=== PATIENT | female | born 1930 | race Caucasian/White ===

== ENCOUNTER 2017-10-27 11:49 | Inpatient (IN) | payer OTHER ==
[~2017-10-27] VITALS: Ht 149.9 cm; Wt 45.4 kg
[~2017-10-27 11:49] MED LIST: LISI-424 PO
--- NOTE | 2017-10-27 11:50 | NUR ---
Pt taken to bed 1 by EMS.
[2017-10-27 11:55] VITALS: BP 128/48
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
[2017-10-27] MEDS ORDERED: NACL 0.9% 500 ML IV ONE ×2 (12:05)
[2017-10-27 12:51] LABS: ANION GAP 7.8 (8-16); BASOPHILS # (AUTO) 0.1 K/uL (0.00-0.22); BASOPHILS % (AUTO) 2.9 % (0.0-2.0); CARBON DIOXIDE 26.6 mmol/L (21-32); CHLORIDE 106 mmol/L (98-107); CREATININE 0.9 mg/dL (0.6-1.3); EOSINOPHILS # (AUTO) 0.7 K/uL (0-0.4); EOSINOPHILS % (AUTO) 15.7 % (0.0-4.0); GLUCOSE 109 mg/dL (74-106); HEMATOCRIT 35.3 % (36-48); HEMOGLOBIN 11.7 g/dL (12.0-16.0); LYMPHOCYTES # (AUTO) 0.8 K/uL (2.5-16.5); LYMPHOCYTES % (AUTO) 18.4 % (20.5-51.1); MEAN CORPUSCULAR HEMOGLOBIN 32 pg (27-31); MEAN CORPUSCULAR HGB CONC 33 g/dL (33-37); MEAN CORPUSCULAR VOLUME 96 fL (80-94); MONOCYTES # (AUTO) 0.5 K/uL (0.8-1.0); MONOCYTES % (AUTO) 11.5 % (1.7-9.3); NEUTROPHILS # (AUTO) 2.4 K/uL (1.8-7.7); NEUTROPHILS % (AUTO) 51.5 % (42.2-75.2); PLATELET COUNT (AUTO) 205 K/uL (140-450); POTASSIUM 4.4 mmol/L (3.5-5.1); RED BLOOD CELL COUNT(AUTO) 3.66 MIL/uL (4.20-5.40); SODIUM SERUM 136 mmol/L (136-145); UREA NITROGEN, BLOOD 23 mg/dL (7-18); WHITE BLOOD COUNT (AUTO) 4.5 K/uL (4.8-10.8)
[2017-10-27 12:54] LABS: PROTHROMBIN TIME 10.3 secs (10.8-13.4)
[2017-10-27 12:57] LABS: ALBUMIN 2.9 g/dL (3.4-5.0); ASPARTATE AMINOTRANSFERASE 22 U/L (15-37); TOTAL BILIRUBIN 0.2 mg/dL (0.0-1.0)
[2017-10-27] MEDS: NACL 0.9% 1,000 ML IV SCH (13:54)
[2017-10-27] MEDS ORDERED: HYDROcodone/APAP 7.5/325 MG 1 TAB PO PRN (13:55)
[2017-10-27] MEDS ORDERED: DOCUSATE SODIUM 100 MG GELCAP PO PRN (13:55)
[2017-10-27] MEDS ORDERED: ACETAMINOPHEN 325 MG TAB PO PRN (13:55)
[2017-10-27] MEDS ORDERED: ONDANSETRON 4 MG/2 ML VIAL IM/IVP PRN (13:55)
--- NOTE | 2017-10-27 14:00 | NUR ---
Carley called to ask about how to store patient's belongings. Carley provided info about bed bugs and states it's not an infectious process and there is no special procedure for pt belongings.
--- NOTE | 2017-10-27 14:08 | NUR ---
Dr. Scott at bedside.
--- NOTE | 2017-10-27 14:16 | NUR ---
Srinivasan from [facility] came down to take patient's belongings. Belongings placed in a trash bag with a goose neck knot. Srinivasan from [facility] would take the belongings and hold them while pt is admitted.
[2017-10-27 14:27] LABS: APPEARANCE,URINE CLEAR (CLEAR); BILIRUBIN,URINE NEGATIVE (NEGATIVE); BLOOD, URINE NEGATIVE (NEGATIVE); COLOR,URINE YELLOW (YELLOW); LEUKOCYTE ESTERASE ,URINE NEGATIVE (NEGATIVE); NITRITE, URINE NEGATIVE (NEGATIVE); PH,URINE 6.5 (5.0-9.0); UGLUCOSE NEGATIVE (NEGATIVE)
--- NOTE | 2017-10-27 14:32 | NUR ---
Pt transferred to Tele 116 via gurweston/amr physician accompanied by Annabel ALVAREZ. Report given to Annabel ALVAREZ.
--- NOTE | 2017-10-27 14:35 | NUR ---
PATIENT ARRIVED ON FLOOR VIA GURNEY. PATIENT AAO X2, SPEAKS SOME MALTESE AND CYPRIOT, CONFUSED. ALERT AND AWAKE. IV 20 G ON LEFT AC. ON ROOM AIR. NO SIGNS OF DISTRESS OR SOB NOTED. RESPIRATIONS EVEN AND UNLABORED. SKIN INTACT. CNAS WILL ASSIST HER IN SHOWERING. SAFETY PRECAUTIONS IN PLACE, BED ON LOWEST SETTING, CALL LIGHT WITHIN REACH. WILL CONTINUE TO MONITOR PATIENT AND FOLLOW ORDERS PER MD. Addendum: 10/27/17 at 1932 by Eduar Sharp RN MRSA SCREENING DONE.
[2017-10-27 15:30] LABS: CHOL/HDL RATIO 2.2 (1-4.5); FREE T4 (FREE THYROXINE) 0.94 ng/dL (0.76-1.46); MAGNESIUM 2.3 mg/dL (1.8-2.4); PHOSPHORUS 3.6 mg/dL (2.5-4.9); THYROID STIMULATING HORMONE 1.99 uIU/mL (0.34-3.74)
--- NOTE | 2017-10-27 16:00 | NUR ---
VS WITHIN NORMAL LIMITS. PATIENT LYING IN BED. NO SIGNS OF DISTRESS NOTED. SAFETY PRECAUTIONS ON. WILL CONTINUE TO MONITOR PATIENT.
[2017-10-27 16:20] VITALS: BP 172/71
--- NOTE | 2017-10-27 18:15 | NUR ---
PATIENT SITTING UP IN BED EATING DINNER. NO DISTRESS OR SOB NOTED. PATIENT DENIES PAIN. SAFETY PRECAUTIONS IN PLACE. WILL CONTINUE TO MONITOR PATIENT.
--- NOTE | 2017-10-27 19:25 | NUR ---
REPORT GIVEN TO DOCTOR OF NATUROPATHIC MEDICINE RN AT BEDSIDE FOR CONTINUITY OF CARE. PATIENT IN STABLE CONDITION.
--- NOTE | 2017-10-27 19:30 | NUR ---
RECEIVED PT FROM CHEL ALVAREZ PT AAOX1 ON BED REST ON TELE SB, IV ON LEFT AC INFUSIG WELL PT ON CONTACT ISOLATION FOR HX BED/BUGS ON HER BODY AND SCRATCHES AND REDNESS FOR ALL HER BODY PT IS ORIENTED TO THE FLOOR CALL LIGHT WITHIN REACH.
[2017-10-27 20:00] VITALS: BP 101/45
--- NOTE | 2017-10-27 21:30 | NUR ---
FAMILY HAS BEEN CALLING SEVERAL TIMES TO SIGN CONSET FOR CT CHEST WITH CONTRAS AND TEL SOUND BUSY DR STEWART AWARE.
--- NOTE | 2017-10-27 21:30 | NUR ---
PT HAS A SITTER AND DR LEIGH WAS NOTIFY PT UNABLE TO SIGN CONSENT FOR CT CHEST WITH CONTRAST AND PT FAMILY WAS CALLED AND NOBODY ANSWER, THEN TOMCATIE PAUL WILL BE CONTACT TO GET MORE INFORMATION TO GET CT CHEST WITH CONTRAST.
[2017-10-28] VITALS (7 sets, daily range): BP systolic 128–152; BP diastolic 52–72
--- NOTE | 2017-10-28 | NUR ---
PT RESTING ON BED NOT DISTRESS NOTED IV ONLEFT AC INFUSING WELL SB ON TELEMETRY SITTER AT BED SIDE
--- NOTE | 2017-10-28 04:00 | NUR ---
PT IS ASSISTED TO THE RESTROOM VOIDING WELL PT CONFUSED AAOX1 PT CAN NOT SIGN CONSENT FOR CT CHEST WITH CONTRAST FAMILY HAS BEEN CALLING AND NOBODY ANSWER DR RESIDENT STEWART AWARE.
--- NOTE | 2017-10-28 05:00 | NUR ---
SPONGE BATH GIVEN LINEN CHANGED PT CONFUSED AAOX1 NOT COMBATIVE FOLLOW COMMANDS ON TELE SB
[2017-10-28 06:16] LABS: T4 (THYROXINE) 6.4 ug/dL (4.5-12.0)
[2017-10-28] MEDS: NACL 0.9% 1,000 ML IV SCH ×2 (06:34→23:40)
--- NOTE | 2017-10-28 07:00 | NUR ---
PT FAMILY HAS BEEN CALLING SEVERAL TIMES , DR DR JENNIFER MARTIN SIGN CONSENT FOR CT CHEST WITH CONTRAST AND TELL DOES NOT ANSWER
--- NOTE | 2017-10-28 07:05 | NUR ---
FAMILY HAS BEEN CALLING SEVERAL TIMES AND NOBODY ANSWER .WE NEED ANY RELATIVE TO SING CONSENT FOR CT CHEST WITH CONTRAST AND NOT BODY ANSWER THE PHONE DR RODRIGUEZ IS AWARE.
--- NOTE | 2017-10-28 07:30 | NUR ---
PT IS ENDORSED TO EUGENIO ALVAREZ FOR CONTINUITY OF CARE
--- NOTE | 2017-10-28 08:00 | NUR ---
RECEIVED REPORT FROM KIM ALMENDAREZ. PATIENT ALERT AWAKE X1. NOT IN ANY DISTRESS NOTED. WITH IVF ON GOING AND INFUSING WELL. INITIAL ASSESSMENT INITIATED. CONTACT PRECAUTION OBSERVED. NEEDS ATTENDED, CALL LIGHT WITHIN REACH. WILL CONTINUE TO MONITOR.
[2017-10-28] MEDS ORDERED: HYDROCORTISONE 1% CRM 30 GM TUBE TP SCH (09:00)
--- NOTE | 2017-10-28 09:16 | NUR ---
PATIENT HAS BEEN SCREENED AND CATEGORIZED HIGH NUTRITION RISK. PATIENT WILL BE SEEN WITHIN 1-2 DAYS OF ADMISSION. 10/27/17-10/28/[address]
--- NOTE | 2017-10-28 11:00 | NUR ---
PATIENT MOVED TO ROOM 121 A FOR CLOSE MONITORING, PATIENT IS FALL RISK. WILL CONTINUE TO MONITOR.
--- NOTE | 2017-10-28 15:37 | NUR ---
RD INITIAL ASSESSMENT COMPLETED PLEASE REFER TO NUTRITION ASSESSMENT UNDER CARE ACTIVITY FOR ESTIMATED NUTRITIONAL NEEDS. 1.CONTINUE WITH CURRENT DIET AND NUTRITION SUPPLEMENTATION (BOOST TID) 2.NURSING STAFF TO CONTINUE TO ASSIST WITH MEALS FOR ADEQUATE INTAKE 3.RD TO FOLLOW-UP IN 3-5 DAYS, MODERATE RISK HARRY BOX RD
--- NOTE | 2017-10-28 17:20 | NUR ---
FAXED INITIAL REVIEW TO [facility] [phone] PHONE CYNTHIA [phone]
--- NOTE | 2017-10-28 19:10 | NUR ---
RECIEVED PATIENT FROM PHILL ALVAREZ , PATIENT ON BED ALERT TO SELF ONLY. BREATHING EVEN AND UNLABORED ON ROOM AIR. WILL CONTINUE MONITOR PATIENT.
--- NOTE | 2017-10-28 19:31 | NUR ---
REPORT GIVEN TO SHAYAN ALVAREZ AT BEDSIDE FOR CONTINUITY OF CARE.
[2017-10-28] MEDS: HYDROCORTISONE 1% CRM 30 GM TUBE TP SCH (20:41)
[2017-10-29 04:00] VITALS: BP 150/67
--- NOTE | 2017-10-29 07:08 | NUR ---
CONFUSE ALL NIGHT , VITAL SIGNS STABLE STABLE BED ALARM ON , KEPT PATIENT SAFE AND COMFORTABLE.
--- NOTE | 2017-10-29 07:10 | NUR ---
RECEIVED REPORT FROM SUPERVISOR MACHINING RN. PATIENT IS AAOX1, GETS CONFUSED, NEEDS CONSTANT REINFORCEMENT. RESPIRATORY EFFORT EVEN AND UNLABORED, NO SIGNS AND SYMPTOMS OF ACUTE DISTRESS NOTED AT THIS TIME. PATIENT HAS IV TO LEFT FOREARM 22G. INFUSING NS AT 60 ML/HR, SITE IS WRAPPED WITH GAUZE DUE TO PATIENTS TENDENCY TO PICK AT SITE. SITE IS CLEAN, DRY, PATENT AND INTACT. DISCUSSED PLAN OF CARE WITH PATIENT WITH A FEW REPETITIONS NEEDED. BED IS IN LOWEST POSITION, SIDE RAILS UP X4, CALL LIGHT PLACED WITHIN REACH, BED ALARM ON, FALL PRECAUTIONS IN PLACE. WILL CONTINUE TO MONITOR.
[2017-10-29 08:00] VITALS: BP 174/82
[2017-10-29 08:12] LABS: BASOPHILS # (AUTO) 0.1 K/uL (0.00-0.22); BASOPHILS % (AUTO) 1.4 % (0.0-2.0); EOSINOPHILS # (AUTO) 0.8 K/uL (0-0.4); EOSINOPHILS % (AUTO) 12.8 % (0.0-4.0); HEMATOCRIT 36.5 % (36-48); HEMOGLOBIN 12.1 g/dL (12.0-16.0); LYMPHOCYTES # (AUTO) 1.3 K/uL (2.5-16.5); LYMPHOCYTES % (AUTO) 20.9 % (20.5-51.1); MEAN CORPUSCULAR HEMOGLOBIN 32 pg (27-31); MEAN CORPUSCULAR HGB CONC 33 g/dL (33-37); MEAN CORPUSCULAR VOLUME 96 fL (80-94); MONOCYTES # (AUTO) 0.6 K/uL (0.8-1.0); MONOCYTES % (AUTO) 9.5 % (1.7-9.3); NEUTROPHILS # (AUTO) 3.5 K/uL (1.8-7.7); NEUTROPHILS % (AUTO) 55.4 % (42.2-75.2); PLATELET COUNT (AUTO) 199 K/uL (140-450); RED BLOOD CELL COUNT(AUTO) 3.79 MIL/uL (4.20-5.40); RED CELL DISTRIBUTION WIDTH 14.1 % (11.6-13.7); WHITE BLOOD COUNT (AUTO) 6.3 K/uL (4.8-10.8)
[2017-10-29 08:17] LABS: ANION GAP 13.1 (8-16); CARBON DIOXIDE 24.5 mmol/L (21-32); CHLORIDE 107 mmol/L (98-107); CREATININE 0.8 mg/dL (0.6-1.3); GLUCOSE 91 mg/dL (74-106); POTASSIUM 3.6 mmol/L (3.5-5.1); SODIUM SERUM 141 mmol/L (136-145); UREA NITROGEN, BLOOD 23 mg/dL (7-18)
[2017-10-29] MEDS ORDERED: LISINOPRIL 20 MG TAB PO SCH (09:10)
[2017-10-29] MEDS: HYDROCORTISONE 1% CRM 30 GM TUBE TP SCH ×2 (09:23→21:00)
--- NOTE | 2017-10-29 09:30 | NUR ---
PATIENT GETTING OUT OF BED. ASSISTED HER ONTO BEDSIDE COMMODE, STATING THAT SHE NEEDED TO USE THE RESTROOM. ASSISTED PATIENT BACK INTO BED.
--- NOTE | 2017-10-29 10:00 | NUR ---
PATIENT INSISTENT IN GETTING OUT OF BED, SAYS THAT SHE NEEDS HER SHOES TO WALK AROUND. EDUCATED PATIENT ON IMPORTANCE OF USING CALL LIGHT, AND THAT SHE IS A FALL RISK AND WE NEED PHYSICAL THERAPY TO EVALUATE HER. REINFORCEMENT NEEDED. BED ALARM ACTIVATED. WILL CONTINUE TO MONITOR.
[2017-10-29 12:00] VITALS: BP 133/88
--- NOTE | 2017-10-29 15:52 | NUR ---
PATIENT REFUSING TO GET BACK INTO BED. SITTING IN THE CHAIR NEXT TO HER BED. SHE BIT THROUGH HER IV TUBING, REPLACED IT. TWENTY MINUTES LATER SHE BIT THROUGH THE NEW TUBING AGAIN. SPOKE WITH DOCTOR AND HE PUT HER ON SALINE LOCK. DOCTOR AWARE THAT SHE DOESN'T WANT TO LAY IN HER BED. BOTH THE DR RUBALCAVA AND MYSELF EDUCATED HER ON SAFETY. SHE NEEDS CONSTANT REINFORCEMENT. DR RUBALCAVA STATED SHES OKAY IN THE CHAIR LONG SOMEONE IS SITTING THERE WITH HER. ABHINAV IS SITTING NEXT TO HER AT THE MOMENT. WILL CONTINUE TO MONITOR.
[2017-10-29] MEDS: NACL 0.9% 1,000 ML IV SCH (15:54)
[2017-10-29 16:00] VITALS: BP 150/88
--- NOTE | 2017-10-29 19:18 | NUR ---
ENDORSED PATIENT TO TELEVISION JOURNALIST RN FOR CONTINUITY OF CARE. PATIENT IN STABLE CONDITION.
--- NOTE | 2017-10-29 19:20 | NUR ---
RECEIVED PT. AWAKE, ALERT BUT VERY CONFUSED. WANTING TO GO HOME AND TRYING TO GET OUT OF ROOM . WILL MONITOR. CNAS AND NURSES WATCHING OVER HER. TELEMETRY MONITORING. DX. OF SEVERELY DISABLED. NOTED PT. ABLE TO STAND UP AND STRONG. BED ALARM ON AT ALLL TIMES.
[2017-10-29 20:00] VITALS: BP 144/74
[2017-10-29] MEDS ORDERED: traZODone 50 MG TAB PO SCH (22:10)
[2017-10-30 01:13] VITALS: BP 136/60
[2017-10-30] MEDS: HALOPERIDOL IM 5 MG/ML VIAL IM PRN (01:51)
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
--- NOTE | 2017-10-30 03:45 | NUR ---
PT. WOKE UP AND WANTED TO GO BSC. HAD SOFT BM . CLEANED HER AND KEPT DRY. ASSISTED BACK TO BED AND MADE HER COMFORTABLE. HR AT THIS TIME 73. NSR NO ECTOPY. CALL LIGHT WITH IN REACH.
[2017-10-30 04:48] VITALS: BP 140/70
--- NOTE | 2017-10-30 04:50 | NUR ---
PT. WENT BACK TO SLEEP AT THIS TIME. TELEMETRY MONITORING AND BED ALARM ON.
--- NOTE | 2017-10-30 05:18 | NUR ---
AWAKE AT THIS TIME AND INFORMED RESIDENT MD MAXWELL THAT PT. REFUSING IVF AND PULLING EVERYTHING OUT."THAT IS GERMAN". BED ALARM ON.
[2017-10-30] MEDS ORDERED: QUEtiapine FUMARATE 25 MG TAB PO SCH (06:05)
--- NOTE | 2017-10-30 06:32 | NUR ---
PT. BEEN WANTING TO WALK OUT OF THE FACILITY STATING WHE IS GOING HOME. CONFUSED AND WEAK. MD RESIDENT AT THIS TIME. INFORMED OF PREDICAMENT. STATED HE WILL GET BACK TO US RT CHARGE NURSE REQUESTED FOR SOMETHING TO CALM HER DOWN.
[2017-10-30] MEDS ORDERED: LORazepam 2 MG/ML VIAL IVP ONE (06:40)
[2017-10-30] MEDS ORDERED: HALOPERIDOL IM 5 MG/ML VIAL IM ONE (06:40)
--- NOTE | 2017-10-30 06:51 | NUR ---
PT. AT TH IS TIME DECIDE TO GO BACK IN BED BUT STILL ATTEMPTS TO GET BACK OUT OF BED WANTING TO GO OUT OF THE FACILITY. NURSE AND SWITCH ENGINEER WATCHING OVER HER CLOSELY. AT PRESENT I AM WATCHING OVER HER 1:1. PT. VERBALIZING BUT CONFUSED.
--- NOTE | 2017-10-30 07:30 | NUR ---
RECEIVED REPORT FROM PNEUMATIC SYSTEMS OPERATOR RN. PATIENT IS AAOX1, GETS CONFUSED, NEEDS CONSTANT REINFORCEMENT. RESPIRATORY EFFORT EVEN AND UNLABORED, NO SIGNS AND SYMPTOMS OF ACUTE DISTRESS NOTED AT THIS TIME. PATIENT IS SITTING UP IN BED ATTEMPTING TO GET OUT, SITTING WITH PATIENT SO SHE DOESN'T GET OUT OF BED. PATIENT HAS IV TO LEFT FOREARM 22G. SITE IS WRAPPED WITH GAUZE DUE TO PATIENTS TENDENCY TO PICK AT SITE. SITE IS CLEAN, DRY, PATENT AND INTACT. DISCUSSED PLAN OF CARE WITH PATIENT WITH A FEW REPETITIONS NEEDED. BED IS IN LOWEST POSITION, SIDE RAILS UP X4, CALL LIGHT PLACED WITHIN REACH, BED ALARM ON, FALL PRECAUTIONS IN PLACE. WILL CONTINUE TO MONITOR.
--- NOTE | 2017-10-30 07:39 | NUR ---
ENDORSED TO THE NEXT RN FOR CONTINUITY OF CARE. STILL AWAKE AT THIS TIME AND WANTING TO GET OUT OF THE HOSPITAL. AM RN SITTING AND WATCHING OVER HER. ABLE TO VERBALIZE BUT CONFUSED.
[2017-10-30 08:00] VITALS: BP 177/73
[2017-10-30] MEDS: NACL 0.9% 1,000 ML IV SCH (08:34)
[2017-10-30] MEDS ORDERED: QUEtiapine FUMARATE 100 MG TAB PO SCH (09:00)
[2017-10-30] MEDS: LISINOPRIL 20 MG TAB PO SCH (09:09)
[2017-10-30] MEDS: HYDROCORTISONE 1% CRM 30 GM TUBE TP SCH ×2 (09:10→21:00)
--- NOTE | 2017-10-30 11:40 | NUR ---
PATIENT REFUSED TO LET ME DO HER VITAL SIGNS. WILL ATTEMPT AGAIN IN A LITTLE WHILE. PATIENT RESPIRATORY RATE EVEN AND UNLABORED. NO SIGNS AND SYMPTOMS OF ACUTE DISTRESS NOTED. SINUS RHYTHM AND HR OF 80 ON THE TELE MONITOR. WILL CONTINUE TO MONITOR.
[2017-10-30 14:00] VITALS: BP 108/56
--- NOTE | 2017-10-30 14:00 | NUR ---
CHECKED ON PATIENT AND SHE IS STILL SLEEPING. URBAN DESIGN CONSULTANT AND MYSELF CHANGED HER, AND SHE VOMITED. PUT HEAD OF BED UP, AND SUCTIONED. TOOK PATIENTS VITALS AND STABLE. PATIENT WON'T OPEN EYES. RESPONDS TO PAINFUL STIMULI. DID STERNAL RUB AND SHE MOVES AROUND, JUST DOESN'T WANT TO OPEN HER EYES. CALLED DR RUBALCAVA TO MAKE AWARE AND HE CAME ASSESSED PATIENT. TOLD HIM HOW THE PATIENT IS, STATED THAT I GAVE HER HER MORNING MEDS WHICH CONSISTED OF SEROQUEL 200MG AND LISINOPRIL. HE ASSESSED PATIENT AND STATED THAT SHE'S OK. TO KEEP MONITORING PATIENT. WILL CONTINUE TO MONITOR.
[2017-10-30 16:00] VITALS: BP 126/58
--- NOTE | 2017-10-30 16:10 | NUR ---
PATIENT STILL SLEEPING. RR 16, O2 93%. NO SIGNS AND SYMPTOMS OF DISTRESS NOTED AT THIS TIME. WILL CONTINUE TO MONITOR.
--- NOTE | 2017-10-30 17:55 | NUR ---
PATIENT CONTINUING TO SLEEP. NO VOMIT NOTICED. NO SIGNS AND SYMPTOMS OF DISTRESS NOTED. WILL CONTINUE TO MONITOR.
--- NOTE | 2017-10-30 19:28 | NUR ---
ENDORSED PATIENT TO CUSTOMER MARKETING MANAGER RN FOR CONTINUITY OF CARE. PATIENT IN STABLE CONDITION.
--- NOTE | 2017-10-30 19:29 | NUR ---
PATIENT REPORT RECEIVED FROM MORNING NURSE AT BEDSIDE. PATIENT IS ASLEEP, RESTING COMFORTABLY IN BED. NO SIGNS AND SYMPTOMS OF DISTRESS NOTED. BREATHING EVEN AND UNLABORED. PATIENT IS ON ROOM AIR. IV SITE NOTED ON LEFT AC, SALINE LOCKED AND WRAPPED IN GAUZE. SAFETY PRECAUTIONS IN PLACE. BED IN LOWEST POSITION, SIDE RAILS UP AND CALL LIGHT WITHIN REACH, WILL CONTINUE TO MONITOR.
[2017-10-30 20:00] VITALS: BP 145/69
--- NOTE | 2017-10-30 20:30 | NUR ---
PATIENT TRIED GETTING OUT OF BED. REORIENTED PATIENT TO HOSPITAL AND EXPLAINED SAFETY AND FALL PRECAUTIONS. REINFORCEMENT NEEDED. ASKED PATIENT IF SHE WOULD LIKE TO EAT DINNER. PATIENT SAID YES. HOB ELEVATED AND FOOD GIVEN TO PATIENT. CALL LIGHT WITHIN REACH, WILL CONTINUE TO MONITOR.
[2017-10-30] MEDS: traZODone 50 MG TAB PO SCH (20:36)
[2017-10-31] VITALS: BP 150/88
[2017-10-31] MEDS: NACL 0.9% 1,000 ML IV SCH ×2 (01:14→20:59)
[2017-10-31 04:00] VITALS: BP 140/79
--- NOTE | 2017-10-31 06:00 | NUR ---
ASSISTED PATIENT TO BEDSIDE COMMODE. PATIENT VOIDED AND HAD A BOWEL MOVEMENT. PERICARE DONE AND PATIENT ASSISTED BACK TO BED. NO SIGN AND SYMPTOMS OF DISTRESS NOTED. WILL CONTINUE TO MONITOR.
--- NOTE | 2017-10-31 06:30 | NUR ---
PATIENT REFUSED BLOOD DRAW. EXPLAINED TO HER THE IMPORTANCE FOR DRAWING BLOOD FOR LABS. PATIENT VERBALIZED UNDERSTANDING AND CHANGED HER MIND AND ALLOWED ACCOUNT MANAGER RELIEF TO DRAW BLOOD
--- NOTE | 2017-10-31 07:20 | NUR ---
PATIENT REPORT GIVEN TO MORNING NURSE. PATIENT IS IN STABLE CONDITION.
[2017-10-31 07:22] LABS: ANION GAP 10.9 (8-16); CARBON DIOXIDE 25.8 mmol/L (21-32); CHLORIDE 107 mmol/L (98-107); CREATININE 0.8 mg/dL (0.6-1.3); GLUCOSE 109 mg/dL (74-106); POTASSIUM 3.7 mmol/L (3.5-5.1); SODIUM SERUM 140 mmol/L (136-145); UREA NITROGEN, BLOOD 23 mg/dL (7-18)
[2017-10-31 07:23] LABS: BASOPHILS # (AUTO) 0.1 K/uL (0.00-0.22); BASOPHILS % (AUTO) 0.9 % (0.0-2.0); EOSINOPHILS # (AUTO) 0.4 K/uL (0-0.4); EOSINOPHILS % (AUTO) 4.5 % (0.0-4.0); HEMATOCRIT 36.5 % (36-48); HEMOGLOBIN 12.4 g/dL (12.0-16.0); LYMPHOCYTES % (AUTO) 10.9 % (20.5-51.1); MEAN CORPUSCULAR HEMOGLOBIN 33 pg (27-31); MEAN CORPUSCULAR HGB CONC 34 g/dL (33-37); MEAN CORPUSCULAR VOLUME 96 fL (80-94); MONOCYTES # (AUTO) 0.7 K/uL (0.8-1.0); MONOCYTES % (AUTO) 7.3 % (1.7-9.3); NEUTROPHILS # (AUTO) 7.4 K/uL (1.8-7.7); NEUTROPHILS % (AUTO) 76.4 % (42.2-75.2); PLATELET COUNT (AUTO) 203 K/uL (140-450); RED BLOOD CELL COUNT(AUTO) 3.81 MIL/uL (4.20-5.40); RED CELL DISTRIBUTION WIDTH 14.3 % (11.6-13.7); WHITE BLOOD COUNT (AUTO) 9.6 K/uL (4.8-10.8)
[2017-10-31 07:33] LABS: MAGNESIUM 2.2 mg/dL (1.8-2.4); PHOSPHORUS 3.9 mg/dL (2.5-4.9)
--- NOTE | 2017-10-31 07:40 | NUR ---
REPORT RECEIVED FROM [facility] N[facility], PT IN BED SLEEPING CALMLY. PT IS EASILY AROUSED VIA NAME. PT IS ALERT TO NAME BUT DISORIENTED TO TIME, PLACE, PURPOSE AND . NO RESP DISTRESS NOTED. PT IS ABLE TO FOLLOW COMMAND APPROPRIATELY. SIDE RAILS UP X4, BED IN LOW POSITION, CALL LIGHT WITHIN REACH AND BED ALARM ON.
[2017-10-31 08:00] VITALS: BP 143/68
[2017-10-31] MEDS ORDERED: QUEtiapine FUMARATE 100 MG TAB PO SCH (09:00)
[2017-10-31] MEDS: QUEtiapine FUMARATE 100 MG TAB PO SCH ×2 (09:58→21:00)
[2017-10-31] MEDS: LISINOPRIL 20 MG TAB PO SCH (09:58)
[2017-10-31 12:00] VITALS: BP 112/51
--- NOTE | 2017-10-31 14:56 | NUR ---
PT AWAKE ALERT AND SITTING IN BED COMFORTABLY. NO ACUTE DISTRESS OT AGITATION. PT ALLOWED IVF TO BE RESTARTED ON HER. REMAINS IN ISOLATION. NORMAL SINUS RHYTHM ON THE MONITOR.
[2017-10-31] MEDS: HYDROCORTISONE 1% CRM 30 GM TUBE TP SCH ×2 (15:15→21:19)
[2017-10-31 15:21] VITALS: BP 100/42
--- NOTE | 2017-10-31 19:25 | NUR ---
PT IN BED AWAKE ALERT AND CALM. NO DISTRESS OR PAIN. 22G IV STARTED ON THE LFA WITHOUT DIFFICULTY. ALL SAFETY MEASURES INPROGRESS. PT REMAINS NORMAL SINUS RHYTHM ON THE MONITOR. V/S STABLE.
--- NOTE | 2017-10-31 19:27 | NUR ---
RECEIVED PT FROM NATALEE RN PT AOX1 CONFUSED EATING HER DINNER IV ON RT FA INFUSING WELL AND K HL ON LEFT FA PATENT ON TELEMETRY SR PT DENIES ANY PAIN NOT DISTRESS NOTED AT THIS TIME.
[2017-10-31 20:00] VITALS: BP 107/55
[2017-10-31] MEDS: traZODone 50 MG TAB PO SCH (21:00)
--- NOTE | 2017-10-31 22:00 | NUR ---
PT IS ASSISTED TO USED BSC VOIDING WELL YELLOW URINE NOT DISTRESS NOTED
[2017-11-01] VITALS: BP 104/57
--- NOTE | 2017-11-01 01:00 | NUR ---
PT SLEEPING WELL REPOSITIONED NOT DISTRESS NOTED IV ON RT FA INFUSING WELL ON TELEMETRY SR
[2017-11-01 04:00] VITALS: BP 105/52
--- NOTE | 2017-11-01 04:00 | NUR ---
SPONGE BATH GIVEN LINEN CHANGED PT COOPERATIVE, NOT DISTRESS NOTED ON TELEMETRY SR
--- NOTE | 2017-11-01 06:23 | NUR ---
PT RESTING ON BED DENIES ANY PAIN IV ON RT FA INFUSING WELL ON TELEMETRY SR
--- NOTE | 2017-11-01 07:18 | NUR ---
RECEIVED REPORT FROM BUTTER MAKER NURSE. PATIENT LYING IN BED COMFORTABLY. NO DISTRESS NOTED. RESPIRATIONS EVEN, UNLABORED, ON ROOM AIR. DENIES ANY PAIN AT THIS TIME. AAOX1, CALM, COOPERATIVE, SKIN COLOR APPROPRIATE TO ETHNICITY, WARM TO TOUCH. SKIN HAS BED BUG BITES THROUGHOUT UPPER BODY THAT IS HEALING, NOT INFLAMMED. NO ITCHING REPORTED AT THIS TIME. DENIES ANY PAIN. LUNGS CTA ON ALL LOBES. ABDOMEN SOFT, NON-DISTENDED. IV SITE INTACT, PATENT, AND INFUSING IVF PER ORDERS. SAFETY MEASURES IN PLACE, CALL LIGHT WITHIN REACH, FALL PREVENTIONS IN PLACE. WILL CONTINUE TO MONITOR.
[2017-11-01 08:00] VITALS: BP 150/65
[2017-11-01 08:13] LABS: HEMATOCRIT 33.7 % (36-48); HEMOGLOBIN 11.2 g/dL (12.0-16.0); MEAN CORPUSCULAR HEMOGLOBIN 32 pg (27-31); MEAN CORPUSCULAR HGB CONC 33 g/dL (33-37); MEAN CORPUSCULAR VOLUME 96 fL (80-94); PLATELET COUNT (AUTO) 197 K/uL (140-450); RED BLOOD CELL COUNT(AUTO) 3.51 MIL/uL (4.20-5.40); RED CELL DISTRIBUTION WIDTH 14.2 % (11.6-13.7); WHITE BLOOD COUNT (AUTO) 5.7 K/uL (4.8-10.8)
[2017-11-01 08:47] LABS: ANION GAP 9.8 (8-16); CARBON DIOXIDE 25.3 mmol/L (21-32); CHLORIDE 105 mmol/L (98-107); CREATININE 0.7 mg/dL (0.6-1.3); GLUCOSE 100 mg/dL (74-106); POTASSIUM 4.1 mmol/L (3.5-5.1); SODIUM SERUM 136 mmol/L (136-145); UREA NITROGEN, BLOOD 30 mg/dL (7-18)
[2017-11-01 09:06] LABS: EOSINOPHILS % (MANUAL) 24 % (0-4); LYMPHOCYTES % (MANUAL) 20 % (20-46); MONOCYTES % (MANUAL) 4 % (5-12)
[2017-11-01] MEDS: LISINOPRIL 20 MG TAB PO SCH (09:27)
[2017-11-01] MEDS: HYDROCORTISONE 1% CRM 30 GM TUBE TP SCH ×2 (09:28→21:43)
[2017-11-01] MEDS: QUEtiapine FUMARATE 100 MG TAB PO SCH ×2 (09:28→21:44)
--- NOTE | 2017-11-01 09:36 | NUR ---
PATIENT LYING IN BED WATCHING TV. NO DISTRESS NOTED. DENIES ANY PAIN AT THIS TIME. SCHEDULED MEDICATIONS DUE GIVEN. ASSISTED PATIENT IN REPOSITIONING AND TO THE BEDSIDE COMMODE AND BACK TO BED. SAFETY MEASURES IN PLACE, CALL LIGHT WITHIN REACH, FALL PREVENTIONS IN PLACE. WILL CONTINUE TO MONITOR.
[2017-11-01] MEDS: NACL 0.9% 1,000 ML IV SCH (10:34)
--- NOTE | 2017-11-01 11:40 | NUR ---
PATIENT TRYING TO GET OUT OF BED, CLAIMING WANTING TO WALK AROUND. PROVIDED PATIENT EDUCATION THAT PHYSICAL THERAPY WAS ON UNIT AND WILL WORK WITH PATIENT TO WALK AROUND ONCE THEY COME TO HER. PATIENT VERBALIZED UNDERSTANDING AND WENT BACK TO BED. NO DISTRESS NOTED. DENIES ANY PAIN. SAFETY MEASURES IN PLACE, CALL LIGHT WITHIN REACH, FALL PREVENTIONS IN PLACE. WILL CONTINUE TO MONITOR.
--- NOTE | 2017-11-01 13:00 | NUR ---
PATIENT SITTING IN BED WITH LUNCH TRAY IN FRONT. ABLE TO FEED SELF WITH STANDBY ASSISTANCE. NO DISTRESS NOTED. DENIES ANY PAIN. SAFETY MEASURES IN PLACE, CALL LIGHT WITHIN REACH, FALL PREVENTIONS IN PLACE. WILL CONTINUE TO MONITOR.
--- NOTE | 2017-11-01 14:24 | NUR ---
FAXED CONCURRENT REVIEW TO [facility] [phone] PHONE CYNTHIA [phone]
--- NOTE | 2017-11-01 15:14 | NUR ---
PATIENT LYING IN BED SLEEPING, AROUSABLE BY VOICE. NO DISTRESS NOTED. DENIES ANY PAIN. CONDITION UNCHANGED. IV SITE INTACT, PATENT AND INFUSING IVF PER ORDERS. SAFETY MEASURES IN PLACE, CALL LIGHT WITHIN REACH. WILL CONTINUE TO MONITOR.
[2017-11-01 16:00] VITALS: BP 117/54
--- NOTE | 2017-11-01 16:00 | NUR ---
PHYSICAL THERAPY CO-SIGN The Physical Therapy Progress Notes documented by Painter Railroad Car have been reviewed. I CONCUR W/PRIME MINISTER NOTE; CONT PER TX PLAN Reviewed/Co-Signed by: Jodie Gudino, PT Documentation Done by: CHELSI OCAMPO PTA Addendum: 11/02/17 at 0914 by Jodie Gudino PT Amended: Links added.
--- NOTE | 2017-11-01 18:00 | NUR ---
PATIENT LYING DOWN IN BED SLEEPING, AROUSABLE BY VOICE. NO DISTRESS NOTED. DENIES ANY PAIN. CONTINUES TO BE CONFUSED AND TRYING TO GET OUT OF BED. SAFETY MEASURES IN PLACE, CALL LIGHT WITHIN REACH, FALL PREVENTIONS IN PLACE. WILL CONTINUE TO MONITOR.
--- NOTE | 2017-11-01 19:30 | NUR ---
REPORT GIVEN TO FRUIT GROWER NURSE FOR CONTINUITY OF CARE. PATIENT IN STABLE CONDITION.
--- NOTE | 2017-11-01 19:32 | NUR ---
RECEIVED PT FROM FELICIA RN PT AAOX1 FOLLOW COMMANDS IV ON RT FA INFUSING WELL SCRATCHES ON ARMS AND BACK HEALING ON PROGRESS, NOT DISTRESS NOTED AT THIS TIME
--- NOTE | 2017-11-01 21:30 | NUR ---
PT IS ASSISTED TO USED BSC VOIDING WELL PT USING BSC
[2017-11-01] MEDS: traZODone 50 MG TAB PO SCH (21:44)
[2017-11-02] VITALS: BP 150/78
--- NOTE | 2017-11-02 | NUR ---
PT REPOSITIONED SLEEPING WELL NOT DISTRESS NOTED
--- NOTE | 2017-11-02 02:00 | NUR ---
PT TRYING TO GET OUT OF BED, ASSISSTING TO USED BSC NOT DISTRESS NOTED
[2017-11-02] MEDS: NACL 0.9% 1,000 ML IV SCH (03:14)
[2017-11-02 04:00] VITALS: BP 174/75
--- NOTE | 2017-11-02 04:00 | NUR ---
SPONGE BATH GIVEN LINEN CHANGED PT CAME BACK TO SLEEP
--- NOTE | 2017-11-02 04:10 | NUR ---
DR ARGUELLES WAS NOTIFY HIGH BP 174/75 HR 73 AND ORDER TO FOLLOW
[2017-11-02] MEDS ORDERED: ENALAPRILAT 2.5 MG/2 ML VIAL IVP PRN (04:50)
[2017-11-02] MEDS ORDERED: LABETALOL 100 MG/20 ML VIAL IV SCH (06:00)
--- NOTE | 2017-11-02 06:18 | NUR ---
DR ARGUELLES AWARE PT HIGH BP 167/92 HR 74
--- NOTE | 2017-11-02 06:40 | NUR ---
VASOTEC 5MG ONE ML WAS GIVEN IVP FOR BP 167/92 AND HR 74 PT , JAHAIRA RN WITNESS PT ON CLOSE MONITORING WILL BE REASSESS
--- NOTE | 2017-11-02 07:09 | NUR ---
ASSUMED CONTINUITY OF CARE. NO SIGNS AND SYMPTOMS OF ACUTE DISTRESS NOTED. INITIAL ASSESSMENT DONE. RE-ORIENTED TO EVENTS AND SURROUNDINGS. KEEP COMFORTABLE ON BED. FALL PRECAUTION APPLIED. CALL LIGHT WITHIN REACH.
[2017-11-02 07:54] VITALS: BP 132/66
[2017-11-02 07:58] LABS: BASOPHILS # (AUTO) 0.1 K/uL (0.00-0.22); BASOPHILS % (AUTO) 1.2 % (0.0-2.0); EOSINOPHILS # (AUTO) 0.7 K/uL (0-0.4); EOSINOPHILS % (AUTO) 11.1 % (0.0-4.0); HEMATOCRIT 33.5 % (36-48); LYMPHOCYTES # (AUTO) 0.7 K/uL (2.5-16.5); LYMPHOCYTES % (AUTO) 10.5 % (20.5-51.1); MEAN CORPUSCULAR HEMOGLOBIN 32 pg (27-31); MEAN CORPUSCULAR HGB CONC 33 g/dL (33-37); MEAN CORPUSCULAR VOLUME 98 fL (80-94); MONOCYTES # (AUTO) 0.4 K/uL (0.8-1.0); MONOCYTES % (AUTO) 5.6 % (1.7-9.3); NEUTROPHILS # (AUTO) 4.3 K/uL (1.8-7.7); NEUTROPHILS % (AUTO) 71.6 % (42.2-75.2); PLATELET COUNT (AUTO) 244 K/uL (140-450); RED BLOOD CELL COUNT(AUTO) 3.44 MIL/uL (4.20-5.40); RED CELL DISTRIBUTION WIDTH 13.9 % (11.6-13.7); WHITE BLOOD COUNT (AUTO) 6.3 K/uL (4.8-10.8)
--- NOTE | 2017-11-02 08:00 | NUR ---
Patient's Plan of Care was discussed and reviewed with VULCANIZING MACHINE OPERATOR: GET MULLINS
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
[2017-11-02 09:00] VITALS: BP 157/71
[2017-11-02] MEDS: QUEtiapine FUMARATE 100 MG TAB PO SCH ×2 (09:05→20:59)
[2017-11-02] MEDS: HYDROCORTISONE 1% CRM 30 GM TUBE TP SCH ×2 (09:05→20:59)
[2017-11-02] MEDS: LISINOPRIL 20 MG TAB PO SCH (09:05)
[2017-11-02] MEDS ORDERED: amLODIPine 5 MG TAB PO SCH (11:51)
[2017-11-02 12:00] VITALS: BP 124/64
--- NOTE | 2017-11-02 12:00 | NUR ---
VITALS SIGNS STABLE. NO C/O PAIN. WILL MONITOR.
--- NOTE | 2017-11-02 15:02 | NUR ---
ASSISTED TO BEDSIDE COMMODE. TOLERATED WELL. NO C/O PAIN. PUT BACK TO BED AND KEEP COMFORTABLE.
[2017-11-02 16:00] VITALS: BP 141/67
--- NOTE | 2017-11-02 16:09 | NUR ---
CM NOTE CONCURRENT REVIEW FAXED TO [facility] / FAX# [phone], ATTN: CYNTHIA [phone]
--- NOTE | 2017-11-02 16:27 | NUR ---
11/02/17 RD FOLLOW UP COMPLETED PLEASE REFER TO NUTRITION PROGRESS NOTE UNDER CARE ACTIVITY FOR ESTIMATED NUTRITION NEEDS. 1.CONTINUE WITH CURRENT DIET AND NUTRITION SUPPLEMENTATION (BOOST TID) 2.NURSING STAFF TO CONTINUE TO ASSIST WITH MEALS FOR ADEQUATE INTAKE 3.RD TO FOLLOW-UP IN 3-5 DAYS, MODERATE RISK HARRY BOX, ALO
--- NOTE | 2017-11-02 19:07 | NUR ---
BEDSIDE REPORT GIVEN TO ENDY PALM. IVF INFUSING WELL. IN STABLE CONDITION.
--- NOTE | 2017-11-02 19:20 | NUR ---
RECEIVED FROM AM NURSE AWAKE AND EATING DINNER. NO SOB. PT. WITH DEMENTIA AND CONFUSED AT TIMES. NEEDS WILL BE ANTICIPATED AND WILL BE MET. BED ALARM ON. CALL LIGHT WITH IN REACH.
[2017-11-02] MEDS: traZODone 50 MG TAB PO SCH (20:59)
--- NOTE | 2017-11-02 21:54 | NUR ---
ASSISTED TO GO BEDSIDE COMMODE. ABLE TO URINATE. NO FURTHER COMPLAINTS. NEEDS ANTICIPATED AND WILL BE MET. TOTAL CARE.
[2017-11-03 00:24] VITALS: BP 130/62
--- NOTE | 2017-11-03 00:26 | NUR ---
STILL AWAKE. ENCOURAGED TO SLEEP. CONFUSED. BED ALARM ON.
[2017-11-03] MEDS: HALOPERIDOL IM 5 MG/ML VIAL IM PRN (02:08)
--- NOTE | 2017-11-03 02:37 | NUR ---
PT. TRYING TO CLIMB OUT OF HER BED. CONFUSED. REFUSES TO LISTEN. FALL PRECAUTION IN PLACE. WILL MONITOR CLOSELY.
[2017-11-03] MEDS: NACL 0.9% 1,000 ML IV SCH ×2 (03:14→13:12)
--- NOTE | 2017-11-03 05:54 | NUR ---
PT. DID NOT SLEEP AT ALL TONIGHT. VERY AWAKE . WATCHED OVER HER CLOSELY AND PLACED ON FALL PRECAUTION. BED ALARM ON AND CLOSELY WATCHED BY PIZZA DELIVERY AND NURSE. PROVIDED WITH SNACK.
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
--- NOTE | 2017-11-03 07:10 | NUR ---
ASSUMED CONTINUITY OF CARE. NO SIGNS AND SYMPTOMS OF ACUTE DISTRESS NOTED. INITIAL ASSESSMENT DONE. RE-ORIENTED TO EVENTS AND SURROUNDINGS. FALL PRECAUTION APPLIED. CALL LIGHT WITHIN REACH.
--- NOTE | 2017-11-03 07:35 | NUR ---
Patient's Plan of Care was discussed and reviewed with SHINGLE BOLT CUTTER: GET MULLINS
[2017-11-03 08:00] VITALS: BP 145/75
[2017-11-03] MEDS: LISINOPRIL 20 MG TAB PO SCH (08:49)
[2017-11-03] MEDS: QUEtiapine FUMARATE 100 MG TAB PO SCH ×2 (08:49→21:06)
[2017-11-03] MEDS: HYDROCORTISONE 1% CRM 30 GM TUBE TP SCH ×2 (08:50→21:11)
[2017-11-03] MEDS: amLODIPine 5 MG TAB PO SCH (08:50)
--- NOTE | 2017-11-03 11:14 | NUR ---
CM NOTE CLINICAL INFORMATION FAXED TO [facility] / FAX# [phone], ATTN: MANUELITO #[phone]
--- NOTE | 2017-11-03 11:40 | NUR ---
SLEEPING WELL AT THIS TIME. NO DISTRESS NOTICED. KEEP FREE FROM FALL. CALL LIGHT WITHIN REACH.
--- NOTE | 2017-11-03 14:21 | NUR ---
CM NOTE CONCURRENT REVIEW FAXED TO [facility] / FAX# [phone], ATTN: CYNTHIA [phone]
[2017-11-03 16:00] VITALS: BP 101/52
--- NOTE | 2017-11-03 16:00 | NUR ---
VITALS SIGNS STABLE. NO DISCOMFORT NOTED. CONTINUE MONITORING.
--- NOTE | 2017-11-03 19:23 | NUR ---
BEDSIDE REPORT GIVEN TO ADRIANA BARAJAS. IVF INFUSING WELL. IN STABLE CONDITION.
--- NOTE | 2017-11-03 19:24 | NUR ---
RECD. RESTING IN BED, AWAKE, A/OX1, CONFUSED. RESPIRATION EVEN AND UNLABORED. IV OF NS AT 20 ML/HR INFUSING, RIGHT FOREARM G20. REORIENTED TO HOSPITAL SETTING. USES [facility]SC WITH ASSISTANCE. PLAN OF CARE FOR THE SHIFT DISCUSSED. INSTRUCTED TO CALL NURSE BEFORE GETTING OUT OF BED. NEEDS REINFORCEMENT. BED ALARM ON. DENIES PAIN 0/10.
--- NOTE | 2017-11-03 19:45 | NUR ---
Patient's Plan of Care was discussed and reviewed with GRAPHIC ART SALES REPRESENTATIVE: ADRIANA MARTINEZ
--- NOTE | 2017-11-03 20:15 | NUR ---
ASSISTED OUT OF BED TO GO TO [facility]SC. BACK TO BED AFTER VOIDING. SAFETY MAINTAINED.
[2017-11-03] MEDS: traZODone 50 MG TAB PO SCH (21:06)
--- NOTE | 2017-11-03 21:06 | NUR ---
DUE PO MEDICATIONS GIVEN, TOLERATED WELL.
--- NOTE | 2017-11-03 23:00 | NUR ---
SLEEPING COMFORTABLY IN BED.
[2017-11-04] VITALS: BP 145/68
--- NOTE | 2017-11-04 04:00 | NUR ---
STILL SLEEPING COMFORTABLY.
--- NOTE | 2017-11-04 06:49 | NUR ---
ABLE TO SLEEP WELL. NO ATTEMPT TO GET OUT OF BED DURING SHIFT. CONDITION REMAIN STABLE. WILL ENDORSE TO AM NURSE FOR CONTINUITY OF CARE.
--- NOTE | 2017-11-04 07:20 | NUR ---
ENDORSED TO KIM CONTI FOR CONTINUITY OF CARE.
--- NOTE | 2017-11-04 07:25 | NUR ---
ENDORSEMENT RECEIVED FROM DIRECTOR INTERNAL CONTROL NURSE. PATIENT IS SLEEPING COMFORTABLY. RESPIRATION EVEN, UNLABOR. SKIN DRY AND WARM. NO DISTRESS NOTED AT THIS TIME. IV PATENT AND INTACT. SAFETY MEASURE WAS APPLIED, BED AT LOW POSITION, SIDE RAILS UP. CALL LIGHT WITHIN REACH
[2017-11-04 08:00] VITALS: BP 123/59
[2017-11-04] MEDS: LISINOPRIL 20 MG TAB PO SCH (09:49)
[2017-11-04] MEDS: QUEtiapine FUMARATE 100 MG TAB PO SCH (09:49)
[2017-11-04] MEDS: amLODIPine 5 MG TAB PO SCH (09:50)
[2017-11-04] MEDS: HYDROCORTISONE 1% CRM 30 GM TUBE TP SCH (09:50)
--- NOTE | 2017-11-04 10:50 | NUR ---
PATIENT IS AWAKE. RESPIRATION EVEN, UNLABOR. DENIED PAIN AT THIS TIME. CALL LIGHT WITHIN REACH. INSTRUCTED TO CALL STAFF IF ASSISTANCE NEEDED
--- NOTE | 2017-11-04 12:12 | NUR ---
FAXED CONCURRENT REVIEW TO [facility] [phone] PHONE CYNTHIA [phone] I SPOKE WITH CYNTHIA FROM [facility] AND INFORMED HER THAT WE ARE LOOKING FOR SNF FOR PT. PATIENT WILL PROBABLY NEED ICE SKATING COACH. ALSO INFORMED HER THAT APS IS ON THIS CASE AND HAS FILED FOR CONSERVATOR SHIP THROUGH [facility] [employer].
--- NOTE | 2017-11-04 15:50 | NUR ---
RECEIVED PATIENT FROM KIM CONTI. PATIENT RESTING IN BED. AWAITING GOLF CLUB HEAD INSPECTOR FROM TRANSPORTATION. DISCHARGE ORDER IN PLACE.
--- NOTE | 2017-11-04 15:59 | NUR ---
RECEIVED A CALL FROM MANUELITO FROM [facility]. THEY WILL ACCEPT THE PATIENT. SHE CAN GO TO ROOM 18A UNDER DR. CAZARES. I CALLED [facility] AND SPOKE WITH GREGORIO. SHE GAVE THE AUTH FOR [facility], [id number]. THE AUTH FOR [facility] IS ALSO [id number]. I CALLED MANUELITO AT [facility] AND GAVE HER THE AUTH AND THE PHONE NUMBER TO GREGORIO, . I CALLED PHILL ALVAREZENGRAVER AUTOMATIC NURSE AND INFORMED HER. Addendum: 11/04/17 at 1605 by Nano Barker CM PHONE FOR [facility] IS [phone].
[2017-11-04 16:00] VITALS: BP 95/48
[2017-11-04] MEDS ORDERED: AMLO5TAB4 PO (16:25)
[2017-11-04] MEDS ORDERED: HYD1C TP (16:25)
[2017-11-04] MEDS ORDERED: DOCU-299 PO (16:25)
[2017-11-04] MEDS ORDERED: LISI-420 PO (16:26)
[2017-11-04] MEDS ORDERED: TRAZ-286 PO (16:26)
[2017-11-04] MEDS ORDERED: QUET100T44 PO (16:26)
--- NOTE | 2017-11-04 16:30 | NUR ---
ENDORSEMENT GIVEN TO JEY ALVAREZ FOR CONTINUITY OF CARE. PATIENT IS STABLE
--- NOTE | 2017-11-04 18:10 | NUR ---
CALLED [facility] VILL[facility]ICENC[facility] AND GAVE REPORT TO SANTHOSH.
--- NOTE | 2017-11-04 19:19 | NUR ---
ENDORSED TO CHEL ALVAREZ FOR CONTINUITY OF CARE. PATIENT IN STABLE CONDITION.
--- NOTE | 2017-11-04 21:30 | NUR ---
WREATH MACHINE OPERATOR CALLED [facility] TO FIND OUT WHAT WAS THE HOLD UP. NO TRANSPORT HERE. THEY STATED THEY WILL BE HERE IN 30 MIN.
--- NOTE | 2017-11-04 22:00 | NUR ---
E TOOK PT TO [facility]. RM 18A. DR. CAZARES ATTENDING. PT IN STABLE CONDITION. PERSONAL BELONGINGS WITH PT. PT WHEELED OUT IN WHEELCHAIR. I REMOVED IV AND ARM BANDS.
== END 2017-11-04 22:00 | DRG 884 ==
LOC: MED 11:49 → MTU 13:58
PROVIDERS: ADMIT Family Medicine Sports Medicine; ATTEND Family Medicine Sports Medicine
DX: F03.90 Unspecified dementia, unspecified severity, without behavioral disturbance, psychotic disturbance, mood disturbance, and anxiety (principal); N17.0 Acute kidney failure with tubular necrosis; G93.41 Metabolic encephalopathy; E44.0 Moderate protein-calorie malnutrition; E11.22 Type 2 diabetes mellitus with diabetic chronic kidney disease; F79 Unspecified intellectual disabilities; D64.9 Anemia, unspecified; B88.8 Other specified infestations; L92.8 Other granulomatous disorders of the skin and subcutaneous tissue; R00.1 Bradycardia, unspecified; N18.9 Chronic kidney disease, unspecified; I12.9 Hypertensive chronic kidney disease with stage 1 through stage 4 chronic kidney disease, or unspecified chronic kidney disease; Z68.20 Body mass index [BMI] 20.0-20.9, adult
CPT/HCPCS: 36415; 70450; 71010; 74000; 80048; 80053; 81003; 83036; 83605; 83735; 83880; 84100; 84436; 84439; 84443; 84479; 84484; 85025; 85610; 85730; 87040; 87081; 93005; 93880; 96360; 97110; 97116; 97140; 97530; 99285; C1758; J1630; J3490; J7030; Q0092